=== PATIENT | female | born 1970 | race Caucasian/White ===

== ENCOUNTER 2016-12-05 15:33 | Outpatient (CLI) | payer OTHER ==
--- NOTE | 2016-12-05 16:53 | MMO ---
BILATERAL SCREENING MAMMOGRAMS: DATE: 12/05/16 Baseline exam. No priors available for comparison. This patient's mammogram was interpreted with the assistance of computer-aided detection. FINDINGS: There is heterogeneously dense breast parenchyma bilaterally, which limits the sensitivity of mammog jay. No evidence of a dominant mass, suspicious clustering of microcalcification, or architectural distortion. IMPRESSION: BIRADS 1: Negative Annual screening mammography is recommended. POS: GUS
== END 2016-12-05 15:34 | disposition home or self-care (01) ==
LOC: SCSMAMMO 15:33
PROVIDERS: ATTEND Family Medicine
DX: Z12.31 Encounter for screening mammogram for malignant neoplasm of breast (principal)
CPT/HCPCS: 77067; G0202